=== PATIENT | male | born 1955 | race Caucasian/White ===

== ENCOUNTER 2016-09-10 19:09 | Emergency (ER) | payer BC ==
[2016-09-10 20:00] VITALS: BP 121/74
[2016-09-10] MEDS ORDERED: cefTRIAXone 1 GM in Sodium Chloride 0.9% 50 ML IV ONE (20:39)
[2016-09-10] MEDS ORDERED: Sodium Chloride 0.9% 1,000 ML IV SCH (20:45)
--- NOTE | 2016-09-10 22:25 | EDM.PDOC ---
ED HPI GENERAL MEDICAL PROBLEM - General Chief Complaint: Fever Stated Complaint: SURGERY 29 NOT DOING WELL Time Seen by Provider: 09/10/16 19:33 Source of Information: Reports: Patient History Limitations: Reports: No Limitations - History of Present Illness INITIAL COMMENTS - FREE TEXT/NARRATIVE: fever; this is a 61 year old male present to ER with report of fever for the past two days. He reports fever started yesterday, but didn't take his temp, today had a theremeter, temp 101 and 102. 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 Pain Score (Numeric/FACES): 0 - Related Data Allergies Allergy/AdvReac Type Severity Reaction Status Date / Time lisinopril Allergy Cough Verified 09/10/16 19:45 Home Meds: Home Meds Aspirin [Merlyn Chewable] 81 mg PO BID 09/10/16 [History] Carvedilol [Coreg] 12.5 mg PO BID 09/10/16 [History] Losartan [Cozaar] 50 mg PO DAILY 09/10/16 [History] Multivitamin [Multi-Day Vitamins] 1 each PO DAILY 09/10/16 [History] Nitroglycerin [Nitrostat] 0.4 mg SL ASDIRECTED PRN 09/10/16 [History] [place]-3/DHA/Epa/Fish Oil [[place]-3 Fish Oil 1,000 MG Sfgl] 1,000 mg PO BID [History] Rosuvastatin [Crestor] 40 mg PO DAILY 09/10/16 [History] Sildenafil Citrate [Sildenafil] 100 mg PO ASDIRECTED PRN 09/10/16 [History] Past Medical History HEENT History: Reports: None Cardiovascular History: Reports: High Cholesterol, Hypertension, Other (See Below) Other Cardiovascular History: ICD Respiratory History: Reports: Other (See Below) Other Respiratory History: Pulmonary nodule Gastrointestinal History: Reports: None Musculoskeletal History: Reports: Arthritis - Past Surgical History HEENT Surgical History: Reports: None Cardiovascular Surgical History: Reports: AICD, Coronary Artery Stent Respiratory Surgical History: Reports: None GI Surgical History: Reports: None Musculoskeletal Surgical History: Reports: Knee Replacement, Other (See Below) Other Musculoskeletal Surgeries/Procedures:: right knee ALC Social & Family History - Tobacco Use Smoking Status *Q: Never Smoker - Caffeine Use Caffeine Use: Reports: Soda - Recreational Drug Use Recreational Drug Use: No - Living Situation & Occupation Living situation: Reports: 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) ED ROS GENERAL - Review of Systems Review Of Systems: See Below Constitutional: Reports: Fever, Fatigue HEENT: Reports: No Symptoms Respiratory: Reports: No Symptoms Cardiovascular: Reports: No Symptoms Endocrine: Reports: No Symptoms GI/Abdominal: Reports: Nausea : Reports: No Symptoms Musculoskeletal: Reports: No Symptoms Skin: Reports: No Symptoms Neurological: Reports: No Symptoms Psychiatric: Reports: No Symptoms Hematologic/Lymphatic: Reports: No Symptoms Immunologic: Reports: No Symptoms ED EXAM, GENERAL - Physical Exam Exam: See Below Exam Limited By: No Limitations General Appearance: Alert, WD/WN, No Apparent Distress Eye Exam: Bilateral Eye: Normal Inspection Ears: Normal External Exam, Normal Canal, Hearing Grossly Normal, Normal TMs Ear Exam: Bilateral Ear: Auricle Normal, Canal Normal, TM normal Nose: Normal Inspection, Normal Mucosa, No Blood Throat/Mouth: Normal Inspection, Normal Lips, Normal Teeth, Normal Gums, Normal Oropharynx, Normal Voice, No Airway Compromise Head: Atraumatic, Normocephalic Neck: Normal Inspection, Supple, Non-Tender, Full Range of Motion Respiratory/Chest: No Respiratory Distress, Lungs Clear, Normal Breath Sounds, No Accessory Muscle Use, Chest Non-Tender Cardiovascular: Normal Peripheral Pulses, Regular Rate, Rhythm, No Edema, No Gallop, No JVD, No Murmur, No Rub GI/Abdominal: Normal Bowel Sounds, Soft, Non-Tender, No Organomegaly, No Distention, No Abnormal Bruit, No Mass (Male) Exam: Deferred Rectal (Males) Exam: Deferred Back Exam: Normal Inspection, Full Range of Motion, NT Extremities: Normal Inspection, Normal Range of Motion, Non-Tender, Normal Capillary Refill, No Pedal Edema Neurological: Alert, Oriented, Normal Cognition, Normal Gait, No Motor/Sensory Deficits Psychiatric: Normal Affect, Normal Mood Skin Exam: Warm, Dry, Other (surgical incision with steri strip intact to left upper chest. tape olsen noted. incision is dry, clean and intact.) Lymphatic: No Adenopathy EKG INTERPRETATION EKG Date: 09/10/16 Rhythm: NSR P-Wave: Present QRS: Normal ST-T: Normal QT: Normal Comparison: NA - No Prior EKG Course - Vital Signs Last Recorded V/S: Last Vital Signs Temp 38.3 C H 09/10/16 19:59 Pulse 78 09/10/16 19:59 Resp 16 09/10/16 19:59 BP 121/74 09/10/16 19:59 Pulse Ox 92 L 09/10/16 19:59 - Orders/Labs/Meds Orders: Active Orders 24 hr Category Date Time Status EKG Documentation Completion [RC] ASDIRECTED Care 09/10/16 20:36 Active Chest 2V [CR] Urgent Exams 09/10/16 20:35 Taken BABESIA MICROTI IGG AND IGM [REF] Stat Lab 09/10/16 21:50 Received CULTURE BLOOD [BC] Urgent Lab 09/10/16 20:50 Received CULTURE BLOOD [BC] Urgent Lab 09/10/16 21:03 Received EHRLICHIA CHAFFEENSIS, IGG&IGM [REF] Stat Lab 09/10/16 21:50 Received LYME AB SCREEN RFLX [REF] Urgent Lab 09/10/16 21:50 Received Blood Culture x2 Reflex Set [OM.PC] Urgent Oth 09/10/16 20:35 Ordered EKG 12 Lead [EK] Urgent Ther 09/10/16 20:35 Ordered Labs: Laboratory Tests 09/10/16 09/10/16 Range/Units 20:50 20:50 WBC 5.1 (4.5-11.0) K/uL RBC 5.22 (4.30-5.90) M/uL Hgb 15.2 H (12.0-15.0) g/dL Hct 45.3 (40.0-54.0) % MCV 87 (80-98) fL MCH 29 (27-31) pg MCHC 34 (32-36) % Plt Count 116 L (150-400) K/uL Neut % (Auto) 70 H (36-66) % Lymph % (Auto) 18 L (24-44) % [place] % (Auto) 12 H (2-6) % Eos % (Auto) 0 L (2-4) % Baso % (Auto) 0 (0-1) % Sodium 137 L (140-148) mmol/L Potassium 3.7 (3.6-5.2) mmol/L Chloride 102 (100-108) mmol/L Carbon Dioxide 26 (21-32) mmol/L Anion Gap 12.7 (5.0-14.0) mmol/L BUN 24 H (7-18) mg/dL Creatinine 1.1 (0.8-1.3) mg/dL Est Cr Clr Drug Dosing 73.74 mL/min Estimated GFR (MDRD) > 60 (>60) Glucose 104 (74-106) mg/dL Calcium 8.8 (8.5-10.1) mg/dL Total Bilirubin 1.8 H (0.2-1.0) mg/dL AST 28 (15-37) U/L ALT 29 (12-78) U/L Alkaline Phosphatase 64 (46-116) U/L Troponin I < 0.017 (0.000-0.056) ng/mL Total Protein 7.3 (6.4-8.2) g/dL Albumin 3.4 (3.4-5.0) g/dL Globulin 3.9 H (2.3-3.5) g/dL Albumin/Globulin Ratio 0.9 L (1.2-2.2) Meds: Medications Discontinued Medications Generic Name Dose Route Start Last Admin Trade Name Freq PRN Reason Stop Dose Admin Sodium Chloride 1,000 mls @ 500 mls/hr 09/10/16 20:45 09/10/16 21:18 Normal Saline IV 500 mls/hr ASDIRECTED ANOOP Administration Ceftriaxone Sodium 1 gm/ 50 mls @ 100 mls/hr 09/10/16 20:39 09/10/16 21:14 Sodium Chloride IV 09/10/16 21:08 100 mls/hr ONETIME ONE Administration - Re-Assessments/Exams Free Text/Narrative Re-Assessment/Exam: 09/11/16 00:48 -review labs with and Mrs. Cisneros, this suggest Tick borne illness , recent surgical incision is dry, clean , intact with steri strip. no signs of secondary infections. ankle right shows a single tiny puncture wound without red rash. will treat for Tick borne illness. will give [facility] Doxy 100mg po bid #21 days. treated with Rocephin 1 gram IV and NS 1 liter in ER Patient and agree with plan of care. Departure - Departure Time of Disposition: 22:45 Disposition: Home, Self-Care 01 Condition: Good Clinical Impression: Tick borne fever - Discharge Information Instructions: Lyme Disease Referrals: Ian Woodall MD [Primary Care Provider] - Forms: ED Department Discharge Care Plan Goals: Tick borne illness -given Rocephin 1 gram IV -IV fluids one liter home medication -Doxy 100mg po two times a day for 21 days -continue Tylenol and Motrin as directed Follow up with Primary Care for recheck Return to Clinic or ER if not improved or symptoms worsen - Problem List & Annotations (1) Tick borne fever SNOMED Code(s): 44163726 Code(s): A93.8 - OTHER SPECIFIED ARTHROPOD-BORNE VIRAL FEVERS Status: Acute Priority: High - Problem List Review Problem List Initiated/Reviewed/Updated: Yes - My Orders Last 24 Hours: My Active Orders 09/10/16 20:35 Chest 2V [CR] Urgent Blood Culture x2 Reflex Set [OM.PC] Urgent EKG 12 Lead [EK] Urgent 09/10/16 20:36 EKG Documentation Completion [RC] ASDIRECTED 09/10/16 20:50 CULTURE BLOOD [BC] Urgent 09/10/16 21:03 CULTURE BLOOD [BC] Urgent 09/10/16 21:50 BABESIA MICROTI IGG AND IGM [REF] Stat EHRLICHIA CHAFFEENSIS, IGG&IGM [REF] Stat LYME AB SCREEN RFLX [REF] Urgent - Assessment/Plan Last 24 Hours: My Active Orders 09/10/16 20:35 Chest 2V [CR] Urgent Blood Culture x2 Reflex Set [OM.PC] Urgent EKG 12 Lead [EK] Urgent 09/10/16 20:36 EKG Documentation Completion [RC] ASDIRECTED 09/10/16 20:50 CULTURE BLOOD [BC] Urgent 09/10/16 21:03 CULTURE BLOOD [BC] Urgent 09/10/16 21:50 BABESIA MICROTI IGG AND IGM [REF] Stat EHRLICHIA CHAFFEENSIS, IGG&IGM [REF] Stat LYME AB SCREEN RFLX [REF] Urgent Plan: Tick borne illness -given Rocephin 1 gram IV -IV fluids one liter home medication -Doxy 100mg po two times a day for 21 days -continue Tylenol and Motrin as directed Labs -Tick panel pending; lymes, babesia, E. chaffeensis Follow up with Primary Care for recheck Return to Clinic or ER if not improved or symptoms worsen
--- NOTE | 2016-09-13 09:29 | CR ---
No focal consolidation. Heart size upper limits of normal. Nodular density along the right first rib likely degenerative but a lordotic view follow-up could confirm. No pneumothorax.
== END 2016-09-10 22:45 | disposition home or self-care (01) ==
LOC: JP.ED 19:09
DX: A93.8 Other specified arthropod-borne viral fevers (principal); S90.561A Insect bite (nonvenomous), right ankle, initial encounter; Z98.890 Other specified postprocedural states; Z79.899 Other long term (current) drug therapy; I10 Essential (primary) hypertension; E78.00 Pure hypercholesterolemia, unspecified
CPT/HCPCS: 36415; 71020; 80053; 84484; 85025; 86617; 86618; 86666; 86753; 87040; 87077; 87186; 93005; 96365; 99283; J0696; J7040; J7050